=== PATIENT | female | born 1960 | race African-American/Black ===

== ENCOUNTER 2023-05-03 15:28 | Emergency (ER) | payer OTHER, SELFPAY ==
--- NOTE | ~2023-05-03 | US_ITS ---
EXAMINATION: US ABDOMEN LIMITED CLINICAL INFORMATION: Vomiting. Concern for cholecystitis COMPARISON: None available. TECHNIQUE: Real-time imaging of the right upper quadrant abdominal viscera. FINDINGS: PANCREAS: Normal. LIVER: Normal. The liver is normal in size. The liver contour is normal. Parenchymal echogenicity is normal. No focal hepatic lesion. There is no intrahepatic biliary duct dilatation seen. GALLBLADDER: Gallbladder is physiologically distended. There is faintly echogenic nonshadowing material within the gallbladder. No definite shadowing gallbladder calculi are seen. There is no gallbladder wall thickening or pericholecystic fluid. COMMON BILE DUCT: Normal in caliber measuring 0.6 cm in diameter. RIGHT KIDNEY: Not imaged US/US abdomen limited IMPRESSION: Faintly echogenic nonshadowing material within the gallbladder consistent with sludge/echogenic bile. No definite shadowing gallbladder calculi. No biliary dilatation.
--- NOTE | ~2023-05-03 | CT_ITS ---
EXAMINATION: CT abdomen pelvis w IV con CLINICAL INFORMATION: Reason for Exam Abd pain COMPARISON: No prior CT available for comparison. TECHNIQUE: Multidetector volumetric imaging was performed from the superior aspect of the liver through the pubic symphysis 85 mL of Omnipaque 350 injected Sagittal and coronal reformatted images were obtained on the technologist's workstation. This CT examination was performed using dose optimization techniques as appropriate, variously including the following: *Automated exposure control *Adjustment of mA and/or kV according to patient size (this includes techniques or standardized protocols for targeted exams where dose is matched to indication/reason for exam; i.e. extremities or head) *Use of iterative reconstruction technique DLP: 616 mGy-cm FINDINGS: LOWER THORAX: Included lung bases are clear. HEPATOBILIARY: No focal hepatic lesions. No biliary ductal dilatation. GALLBLADDER: Gallbladder is distended. No pericholecystic fluid. Common bile duct is mildly prominent measure 6 mm. SPLEEN: Spleen is normal in size. PANCREAS: No focal mass or ductal dilatation. STOMACH AND GASTROINTESTINAL TRACT: Stomach is grossly unremarkable. There is a short segment of the distal sigmoid colon that exhibits some circumferential wall thickening, although could be peristalsis and/or sequela of chronic subclinical colitis, cannot entirely rule out the possibility of neoplastic process, this would require correlation with follow-up screening colonoscopy or barium enema. Refer image 84 series 6 There is air in the appendix, no evidence of appendicitis. ADRENALS: No adrenal nodules. KIDNEYS/URETERS: No hydronephrosis, stones or solid mass lesions. URINARY BLADDER: Partially decompressed. PELVIC VISCERA: Unremarkable PERITONEUM: No free air or fluid. LYMPH NODES: No lymphadenopathy. VASCULAR:Abdominal aorta normal in size, no aneurysm found. * BONES, ABDOMINAL WALL AND SOFT TISSUES: Age-appropriate changes of the spine and skeletal system, no destructive osteolytic or osteosclerotic bone lesion foundSmall anterior abdominal wall periumbilical hernia containing fat only without bowels. CT/CT abdomen pelvis w IV con IMPRESSION: * Distended gallbladder and mildly prominent common bile duct nonspecific CT finding however if there is a clinical suspicion for possible cholecystitis, would recommend correlation with follow-up ultrasound. * No bowel obstruction. * There is a short segment of the distal sigmoid colon that exhibits circumferential wall thickening, although could be peristalsis and/or sequela of chronic subclinical colitis, cannot entirely rule out the possibility of neoplastic process, this would require correlation with FOLLOW-UP SCREENING COLONOSCOPY OR BARIUM ENEMA. * Small anterior abdominal wall periumbilical hernia containing fat only without bowels. (Referring physician staff is being called, by physician staff assistance, to be alerted of the above critical findings and recommendations.) 05/03/2023 10:49 PM
[2023-05-03 15:56] VITALS: BP 146/79; PULSE 80; RESP 16; TEMP 37; O2SAT 99; BMI 29.2
--- NOTE | 2023-05-03 15:56 | ED.GENADULT ---
HPI - General Adult General Chief complaint: Abdominal Pain Stated complaint: abd pain, high bp Time Seen by Provider: 05/03/23 20:31 History of Present Illness HPI narrative: 63 y/o F patient; PMH HTN, T2DM; presents from home reporting three weeks of nausea, vomiting, and diffuse non-focal abdominal pain. She believes her symptoms started after beginning Gliclaz[place]. The patient is visiting from [facility], she will leave for [facility] 06/10/2022. Her family have initially been attributing her symptoms to the change in food quality and quantity. However, when they change her food her symptoms will improve for 2 - 3 days and then return. She otherwise denies: fever or chills, known sick contacts, SOB, cough/congestion, chest pain. Family is concerned about parasites in her stool. Related Data Previous Rx's Medication Instructions Recorded hyoscyamine sulfate 0.125 mg tablet 0.125 mg PO QID #10 tabs 05/04/23 ondansetron 4 mg disintegrating 4 mg PO Q6H PRN nausea and 05/04/23 tablet vomiting #14 tabs Allergies Allergy/AdvReac Type Severity Reaction Status Date / Time No Known Allergies Allergy Verified 05/03/23 15:56 Review of Systems Review of Systems: Yes all other systems are reviewed and are negative [facility] Past Medical History Source: unable to obtain Social History Social History Advance Directives: No Advance Directives Information Provided: No Physical Exam ED Vital Signs: Vital Signs - 24 hr 05/03/23 15:56 05/03/23 21:17 Temperature 98.6 F 97.7 F Pulse Rate 80 70 Respiratory Rate 16 16 Blood Pressure 146/79 H 134/74 Pulse Oximetry 99 100 Oxygen Delivery Method Room Air Room Air BMI result Body Mass Index 29.2 Patient is afebrile and hemodynamically stable. Const General: cooperative and no acute distress HENMT Head: Yes normal to inspection and Yes atraumatic Eyes General: appearance normal, both eyes and all related structures Pupils: Equal, round and reactive pupils present EOM: EOMs intact bilaterally Neck Neck: Yes normal visual inspection, Yes full ROM and Yes supple Chest Chest palpation & inspection: normal inspection of the chest and normal palpation of entire chest wall Resp Effort & Inspection: normal respiratory effort, able to speak in complete sentences and no respiratory distress Auscultation: clear to auscultation bilaterally Cardio Rate: regular rate Rhythm: regular rhythm Peripheral pulses: Peripheral pulses 2+ throughout GI Inspection: Yes normal to inspection and No distended Palpation (GI): Soft to palpation, not firm, nontender, no guarding and not rigid Auscultation: normal bowel sounds General: Yes no CVA tenderness Back/Spine/Pelvis Back: no CVA tenderness Neuro Cranial nerves: Yes Equal, round and reactive pupils present Course Course Course Narrative: RME- 63 year old female presents for evaluation of abdominal pain and vomiting for the last 3 weeks. She is visiting family from [facility]. Plan for labs, UA. Hx of diabetes Reevaluation(s) Reevaluation #1: Patient appears comfortable. Discussed results of laboratory studies with patient and family. No leukocytosis. Mild anemia. No abnormalities in abdominal laboratory tests. Patient is at higher risk as she is [place] this country without a PCP. As symptoms have been ongoing for a significant period of time, discussed utility of CT imaging with patient and family who would prefer a CT scan. Also discussed that we can check stool studies if patient can provide a sample in the ED. Patient will attempt to provide sample. Plan: Transition care to night physician pending CT results Condition: Stable Medications Administered Discontinued Medications Generic Name Dose Route Start Last Admin Trade Name Freq PRN Reason Stop Dose Admin Iohexol 100 ml 05/03/23 22:27 05/03/23 22:27 Iohexol 350 Mg/Ml 100 Ml Infus..Btl IV 05/03/23 22:28 85 ml ONCE ONE Administration Medical Decision Making Medical Decision Making [facility] Narrative: I received sign-out from my colleague Dr. Rivera -CT scan of the abdomen showed possible acute cholecystitis. However, the ultrasound that was subsequently ordered, both negative for acute cholecystitis. -on physical exam prior to discharge, patient is awake and alert, patient states that she feels much better, has no abdominal pain nausea or vomiting. -patient is instructed to get a new primary care physician, list of PCPs in walk-in clinics was provided to the patient Differential Diagnosis Differential Diagnoses: The differential diagnosis associated with the presentation includes (Acute cholecystitis, gastritis, gastroenteritis, peptic ulcer, viral illness) Admission/Observation Consideration of admission/observation: Escalation of care including admission/observation considered Lab Data [facility] Lab Attestation statement: I reviewed the patient's lab results. 05/03/23 16:28 05/03/23 16:28 Labs: Lab Results 05/03/23 05/03/23 Range/Units 16:28 23:30 WBC 7.8 (4.8-10.8) X10*3/uL RBC 3.86 L (4.20-5.50) X10*6/uL Hgb 11.5 L (12.0-16.0) g/dl Hct 33.6 L (37.0-47.0) % MCV 87.0 (80.0-98.0) fL MCH 29.8 (27.0-33.0) pg MCHC 34.2 (31.0-35.0) g/dl RDW 13.2 (11.0-16.0) % Plt Count 199 (160-400) X10*3/uL MPV 11.7 (9.4-12.3) fL Immature Gran % (Auto) 0.3 (0.0-0.4) % Neut % (Auto) 38.1 L (45-73) % Lymph % (Auto) 47.7 H (20-40) % [place] % (Auto) 8.1 (2-11) % Eos % (Auto) 4.8 H (0-4) % Baso % (Auto) 1.0 (0-2) % Lymph # (Auto) 3.7 (1.2-4.9) X10*3/uL [place] # (Auto) 0.6 (0.1-1.2) X10*3/uL Eos # (Auto) 0.4 (0.0-0.4) X10*3/uL Baso # (Auto) 0.1 (0.0-0.2) X10*3/uL Abs Immat Gran (auto) 0.02 (0.00-0.03) X10*3/uL Absolute Neuts (auto) 3.0 (2.0-8.3) x10*3/uL Absolute Nucleated RBC 0.000 (0.0-0.012) X10*3/uL Nucleated RBC % (auto) 0.0 (0.0-0.2) /100WBC Sodium 140 (135-145) mmol/L Potassium 4.0 (3.3-5.1) mmol/L Chloride 103 (96-108) mmol/L Carbon Dioxide 28 (22-29) mmol/L Anion Gap 13 (12-20) BUN 22 H (9-16) mg/dL Creatinine 0.85 (0.5-1.4) mg/dL Estim Creat Clear Calc 68.0 Estimated GFR > 60 Random Glucose 103 (60-115) mg/dL Calcium 9.3 (8.4-10.2) mg/dL Total Bilirubin 0.8 (0.0-1.0) mg/dL AST 14 (5-31) U/L ALT 14 (0-31) U/L Alkaline Phosphatase 68 (39-117) U/L Total Protein 7.4 (6.5-8.0) g/dL Albumin 3.8 (3.5-5.0) g/dL Lipase 28 (8-78) U/L Urine Color Yellow Urine Appearance Cloudy Urine pH 7.0 (5.0-9.0) Ur Specific [place] 1.025 (1.005-1.025) Urine Protein Negative (Neg-Trace) mg/dL Urine Glucose (UA) Negative (Negative) mg/dL Urine Ketones Trace (Negative) mg/dL Urine Blood Negative (Negative) Urine Nitrite Negative (Negative) Ur Leukocyte Esterase Moderate (2+) H (Negative) Urine RBC 0-2 (0-2) /HPF Urine WBC 6-10 H (0-5) /HPF Ur Squamous Epith Cells 11-20 (0-2) /HPF Urine Bacteria 1+ (None Seen) Hyaline Casts 0-2 (0-2) /LPF Radiology Impression Discussion of test interpretation with radiology: I have reviewed the radiologist's reading. Radiologist Impression: [place] [id number] Ultrasound Report Signed Patient: Lorraine Villanueva MR#: [id number] : 1960 Acct:[id number] Age/Sex: 63 / F ADM Date: 05/03/23 Loc: HO.ED Attending Dr: Ordering Physician: Britney Mcclendon MD Date of Service: 05/03/23 Procedure(s): US abdomen limited Accession Number(s): [id number] cc: Britney Mcclendon MD; Physician,Unknown ~ EXAMINATION: US ABDOMEN LIMITED CLINICAL INFORMATION: Vomiting. Concern for cholecystitis COMPARISON: None available. TECHNIQUE: Real-time imaging of the right upper quadrant abdominal viscera. FINDINGS: PANCREAS: Normal. LIVER: Normal. The liver is normal in size. The liver contour is normal. Parenchymal echogenicity is normal. No focal hepatic lesion. There is no intrahepatic biliary duct dilatation seen. GALLBLADDER: Gallbladder is physiologically distended. There is faintly echogenic nonshadowing material within the gallbladder. No definite shadowing gallbladder calculi are seen. There is no gallbladder wall thickening or pericholecystic fluid. COMMON BILE DUCT: Normal in caliber measuring 0.6 cm in diameter. RIGHT KIDNEY: Not imaged US/US abdomen limited IMPRESSION: Faintly echogenic nonshadowing material within the gallbladder consistent with sludge/echogenic bile. No definite shadowing gallbladder calculi. No biliary dilatation. CT scan of the abdomen/pelvis: v-PANCREAS: Normal. LIVER: Normal. The liver is normal in size. The liver contour is normal. Parenchymal echogenicity is normal. No focal hepatic lesion. There is no intrahepatic biliary duct dilatation seen. GALLBLADDER: Gallbladder is physiologically distended. There is faintly echogenic nonshadowing material within the gallbladder. No definite shadowing gallbladder calculi are seen. There is no gallbladder wall thickening or pericholecystic fluid. COMMON BILE DUCT: Normal in caliber measuring 0.6 cm in diameter. RIGHT KIDNEY: Not imaged US/US abdomen limited IMPRESSION: Faintly echogenic nonshadowing material within the gallbladder consistent with sludge/echogenic bile. No definite shadowing gallbladder calculi. No biliary dilatation. Independent Historian Clinical information obtained from an independent historian. History obtained from or confirmed by: Other (Patient's daughter) Critical Care Time Critical Care Time Critical Care Time: Yes Total Critical Care Time: 60 Attestation: I have personally provided critical care time. Time includes review of lab data, radiology results, discussion with consultants, and monitoring for potential decompensation. Intervention performed as documented. Discharge Plan Discharge Clinical Impression: Nausea & vomiting Patient Disposition: Home, Self-Care Instructions: Acute Nausea and Vomiting (ED) Additional Instructions: Please follow-up with your primary care physician tomorrow. If you have any worsening or new symptoms, please return to the emergency room or call 911 Prescriptions: New ondansetron 4 mg tablet,disintegrating 4 mg PO Q6H PRN (Reason: nausea and vomiting) Qty: 14 0RF hyoscyamine sulfate 0.125 mg tablet 0.125 mg PO QID Qty: 10 0RF
[2023-05-03 16:32] LABS: MANUAL DIFF FLAG NO
[2023-05-03 16:46] LABS: Basophils Absolute Auto 0.1 X10*3/uL (0.0-0.2); Eosinophils Absolute Auto 0.4 X10*3/uL (0.0-0.4); Eosinophils Percent Auto 4.8 % (0-4); Hematocrit 33.6 % (37.0-47.0); Hemoglobin 11.5 g/dl (12.0-16.0); Imm Gran Abs Auto 0.02 X10*3/uL (0.00-0.03); Imm Gran Pct Auto 0.3 % (0.0-0.4); Lymphocytes Absolute Auto 3.7 X10*3/uL (1.2-4.9); Lymphocytes Percent Auto 47.7 % (20-40); Mean Corpuscular HGB Conc 34.2 g/dl (31.0-35.0); Mean Corpuscular Hemoglobin 29.8 pg (27.0-33.0); Mean Platelet Volume 11.7 fL (9.4-12.3); Monocytes Absolute Auto 0.6 X10*3/uL (0.1-1.2); Monocytes Percent Auto 8.1 % (2-11); Neutrophils Percent Auto 38.1 % (45-73); Platelet Count 199 X10*3/uL (160-400); Red Blood Count 3.86 X10*6/uL (4.20-5.50); Red Cell Distribution Width 13.2 % (11.0-16.0); White Blood Count 7.8 X10*3/uL (4.8-10.8)
[2023-05-03 16:53] LABS: Alanine Aminotransferase 14 U/L (0-31); Albumin Level 3.8 g/dL (3.5-5.0); Alkaline Phosphatase 68 U/L (39-117); Anion Gap 13 (12-20); Aspartate Amino Transferase 14 U/L (5-31); Bilirubin Total 0.8 mg/dL (0.0-1.0); Blood Urea Nitrogen 22 mg/dL (9-16); Calcium 9.3 mg/dL (8.4-10.2); Carbon Dioxide 28 mmol/L (22-29); Chloride 103 mmol/L (96-108); Estimated Glomerular Filt Rate > 60; Glucose Random 103 mg/dL (60-115); Lipase 28 U/L (8-78); Sodium 140 mmol/L (135-145); Total Protein 7.4 g/dL (6.5-8.0)
[2023-05-03 21:17] VITALS: BP 134/74; PULSE 70; RESP 16; TEMP 36.5; O2SAT 100
[2023-05-03] MEDS: iohexoL 350 MG/ML 100 ML INFUS..BTL IV (22:27)
[2023-05-03 23:35] LABS: Appearance Urine Cloudy; Color Urine Yellow; Glucose Urine UA Negative (Negative); Leukocyte Esterase Urine Moderate (2+) (Negative); Nitrite Urine Negative (Negative); Specific Gravity - Urine 1.025 (1.005-1.025); UMIC TRIGGER UACC YES; Urine Blood Negative (Negative); Urine Ketones Trace mg/dL (Negative); Urine Protein Negative (Neg-Trace)
[2023-05-03 23:41] LABS: Bacteria Urine 1+ (None Seen); Hyaline Casts Urine 0-2 /LPF (0-2); RBC Urine 0-2 /HPF (0-2); UACC Culture Trigger YES
[2023-05-04 01:37] VITALS: PULSE 78; RESP 16; O2SAT 98
== END 2023-05-04 01:38 | disposition home or self-care (01) ==
PROVIDERS: Physician Assistant; Emergency Provider Emergency Medicine
DX: R11.2 Nausea with vomiting, unspecified (principal); I10 Essential (primary) hypertension; R10.9 Unspecified abdominal pain; Z79.899 Other long term (current) drug therapy
CPT/HCPCS: 36415; 74177; 76705; 80053; 81001; 83690; 85025; 87086; 99284; Q9967